=== PATIENT | male | born 1965 | race Caucasian/White ===

== ENCOUNTER → 2018-01-28 | Outpatient (CLI) | payer BC ==
[2018-01-28 09:35] LABS: HCT 48.6 % (39.0-53.0); HGB 15.9 gm/dL (13.0-17.5); MCH 31.1 pg (25.0-35.0); MCHC 32.8 g/dL (31.0-37.0); Mean Platelet Volume 7.9; Platelet Count 177 k/uL (150-450); RBC 5.12 m/uL (4.30-5.90); RDW 13.6 % (11.5-15.5)
[2018-01-28 09:57] LABS: Albumin 4.4 g/dL (3.5-5.0); Calcium 9.9 mg/dL (8.4-10.2); Total Bilirubin 0.5 mg/dL (0.2-1.3)
[2018-01-28 10:26] LABS: PSA Annual Screen 0.72 ng/mL (0.00-4.00)
== END | disposition home or self-care (01) ==
LOC: LABWHC1 09:01
PROVIDERS: ATTEND Internal Medicine
DX: Z00.00 Encounter for general adult medical examination without abnormal findings (principal); E78.5 Hyperlipidemia, unspecified; Z12.5 Encounter for screening for malignant neoplasm of prostate
CPT/HCPCS: 80061; 80053; 85027; 36415; G0103

== ENCOUNTER → 2018-09-08 | Day surgery (SDC) | payer BC ==
[2018-09-06 09:34] VITALS: BMI 23.2
[~2018-09-08] MED LIST: LACTATED RINGERS 1,000 ML IV SCH; LIDOCAINE 1% 20 ML VIAL (10MG/ML) FOR IV START INTRADERMA PRN; LIDOCAINE 1% INJ 10MG/ML (20 ML MDV) ONE; MIDAZOLAM 2 MG/2 ML VIAL ONE; PROPOFOL 10 MG/ML 20 ML VIAL IV ONE
[2018-09-08 11:29] VITALS: TEMP 98.5
--- NOTE | 2018-09-08 12:36 | P.OP ---
Date of Procedure: 09/08/18 Preoperative Diagnosis: Screening Postoperative Diagnosis: Hepatic Flexure polyp Internal hemorrhoids Procedure(s) Performed: Colonoscopy with snare polypectomy Surgeon: Leander Bass Pathology: other (Colon polyp) Condition: stable Disposition: same day Indications for Procedure: 53-year-old presents for screening colonoscopy. He denied any blood in his stool or having any previous colonoscopy. Plan his first colonoscopy for screening purposes today. Operative Findings: Polyp of the hepatic flexure. This was removed in its entirety. Internal hemorrhoids. Description of Procedure: The patient was brought to the endoscopy suite and placed in the left lateral cutis position. Adequate sedation was achieved using conscious sedation. A digital rectal exam was performed and mild internal hemorrhoids were palpated. An endoscope was then placed in the rectum and advanced to the level of the cecum as identified by landmarks, including the appendiceal orifice and the ileocecal valve. The prep was good. The colonoscope was then slowly withdrawn, examining for any mucosal abnormalities. The cecum, ascending, transverse, descending and sigmoid colon were visualized adequately. There were no large inflammatory lesions noted throughout the colon. There was no evidence of diverticulosis throughout the colon. There was a small polyp noted at the hepatic flexure. A snare polypectomy was performed to remove this polyp. Hemostasis was maintained. There was no obvious source of bleeding throughout the colon. Retroflexion was performed in the rectum and internal hemorrhoids were visible. Excess air was removed. The colonoscope was withdrawn and the pr ocedure terminated. The patient was then transferred to postanesthesia's care unit in stable condition. Repeat colonoscopy should be performed in 5 years
[2018-09-08 12:39] VITALS: PULSE 64; RESP 16
[2018-09-08 12:47] VITALS: BP 113/69
== END | disposition home or self-care (01) ==
LOC: ORWHC2ENDO 10:55
PROVIDERS: ATTEND Surgery
DX: Z12.11 Encounter for screening for malignant neoplasm of colon (principal); D12.3 Benign neoplasm of transverse colon; K64.8 Other hemorrhoids; F17.210 Nicotine dependence, cigarettes, uncomplicated; M19.90 Unspecified osteoarthritis, unspecified site; Z79.1 Long term (current) use of non-steroidal anti-inflammatories (NSAID); Z88.0 Allergy status to penicillin
CPT/HCPCS: 88305; 45385; J2250; J2001; J2704

== ENCOUNTER → 2021-01-06 | Outpatient (CLI) | payer SELFPAY ==
--- NOTE | 2021-01-06 08:24 | CT ---
EXAMINATION TYPE: CT brain wo con DATE OF EXAM: 01/06/2021 COMPARISON: None HISTORY: FLOYD, dizziness, R51.[address] DLP: 1054.2 mGycm Automated exposure control for dose reduction was used. Helical imaging through the brain FINDINGS: There is no hemorrhage or hydrocephalus. Brain density is remarkable for periventricular white matter low-attenuation. Brain volume is notable for mild cortical atrophy. The calvarium is intact. Paranas al sinuses and mastoid air cells as visualized are normal. Orbits are symmetric. IMPRESSION: NONSPECIFIC WHITE MATTER DEMYELINATION. 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 BRAIN MRI MAY BE OF BENEFIT.
== END | disposition home or self-care (01) ==
LOC: RADCTMAIN 07:06
PROVIDERS: ATTEND Internal Medicine
DX: G31.9 Degenerative disease of nervous system, unspecified (principal); G37.9 Demyelinating disease of central nervous system, unspecified
CPT/HCPCS: 70450